=== PATIENT | female | born 1960 | race Caucasian/White ===

== ENCOUNTER 2017-10-13 11:54 | Inpatient (IN) ==
[2017-10-13] MEDS ORDERED: METHYLPREDNISOLONE SOD SUCC 125mg/2ml INJECTION IVP ONE (12:16)
[2017-10-13] MEDS: ALBUTEROL/IPRATROPIUM 2.5mg-0.5mg/3ml NEB AEROSOL ONE (12:20)
--- NOTE | 2017-10-13 12:22 | Emergency Department Report ---
Asthma HPI - General Chief Complaint: Shortness of Breath/Dyspnea <Lindsey Baez 10/13/17 12 :25> Stated Complaint: soa, chest tightness <Lindsey Baez 10/13/17 12:25> Source: patient <Lindsey Baez 10/13/17 12:25> Mode of arrival: EMS <Lindsey Baez 10/13/17 12:25> Limitations: no limitations <Lindsey Baez 10/13/17 12:25> - History of Present Illness HPI Narrative: PT presents with increased difficulty breathing for 5 days. Last similar episode was about a month ago when she was admitted to [facility] for HMV. She reports non productive cough and feels it is worse with exertion. She feels like her lungs hurt but denies chest pain. She also denies fever, diaphoresis, N /V/D. She takes prn Lasix for "leg swelling" but denies any cardiac or respiratory health issues. She is currently receiving treatment for non hodgkins lymphoma. <Lindsey Baez 10/13/17 12:25> MD complaint: shortness of breath <Lindsey Baez 10/13/17 12:25> Onset (ago): day(s) <Lindsey Baez 10/13/17 12:25> Severity: moderate <Lindsey Baez 10/13/17 12:25> Associated symptoms: dry cough <Lindsey Baez 10/13/17 12:25> - Related Data Home Medications Medication Instructions Recorded Confirmed Omeprazole Magnesium [Prilosec Otc] 20 mg PO DAILY PRN #0 tab 02/15/13 10/13/17 Zolpidem Tartrate [Ambien] 10 mg PO HS #0 12/30/15 10/13/17 Venlafaxine [Effexor] 37.5 mg PO BID 04/27/17 10/13/17 Allopurinol [Zyloprim] 300 mg PO DAILY 10/13/17 10/13/17 Cyclobenzaprine [Flexeril] 10 mg PO TID PRN 10/13/17 10/13/17 Furosemide [Lasix 40 mg Tab] 40 mg PO BID 10/13/17 10/13/17 Ondansetron Tab [Zofran Po] 8 mg PO TID PRN 10/13/17 10/13/17 Oxycodone *IR* [Roxicodone *Ir*] 45 mg PO Q4H PRN 10/13/17 10/13/17 PredniSONE [Deltasone 20 mg] 40 mg PO DAILY 10/13/17 10/13/17 Venetoclax [Venclexta] 200 mg PO DAILY 10/13/17 10/13/17 <Lindsey Baez 10/13/17 12:25> Allergies Allergy/AdvReac Type Severity Reaction Status Date / Time benzonatate AdvReac Dizziness Verified 10/13/17 12:46 <Lindsey Baez 10/13/17 12:25> Review of Systems All systems: reviewed and negative except as stated <Lindsey Baez 01/23 12:25> Constitutional: Reports: as per HPI <Lindsey Baez 10/13/17 12:25> Cardiovascular: Reports: as per HPI <Lindsey Baez 10/13/17 12:25> Respiratory: Reports: as per HPI <Lindsey Baez 10/13/17 12:25> Gastrointestinal: Reports: as per HPI <Lindsey Baez 10/13/17 12:25> [facility] Patient Stated Medical History Hypertension Yes Gastroesophageal Reflux Yes Disease Ulcer Yes Sepsis Yes Other Yes: non-hodgkins lymphoma Depression Yes <Lindsey Baez 10/13/17 12:25> - Social History Smoking status: Never smoker <Lindsey Baez 10/13/17 12:25> Physical Exam - Limitations Limitations: no limitations <Lindsey Baez 10/13/17 12:25> - General General appearance: alert, in distress <Lindsey Baez 10/13/17 12:25> - Normal Exams: Head:: Normocephalic without trauma <Lindsey Baez 10/13/17 12:25> Eyes:: Pupils are PERRLA w/ EOMI <Lindsey Baez 10/13/17 12:25> Chest/Respirations:: Clear all villagomez (tachypnic), with good airflow, and symmetry bilaterally <IgnaciaconchaLindsey 10/13/17 12:25> Cardiovascular:: Regular rate and rhythm, without murmur or gallop, Pulses 2+ all extremities, capillary refill, <2 seconds all extremities <Ignaciaconcha Lindsey Mary Snyder 10/13/17 12:25> Abdomen:: Bowel sounds positive, soft, non-tender, non-distended <Sasha Lindseymary Snyder 10/13/17 12:25> Musculoskeletal:: No tenderness, or deformity noted, good range of motion, all extremities <Jose AntoniojosephLindsey Mary Snyder 10/13/17 12:25> Integumentary:: No rashes <SashaLindsey Mary Snyder 10/13/17 12:25> Neurological:: Patient is alert, and oriented, cranial nerves, motor/sensory/ cerebellar, exams w/o gross deficits, to observation <Lindsey Baez 01/23 12:25> Psychiatric:: Patient exhibits, appropriate attention, emotion and affect < Jose AntoniojosephLindsey Mary Snyder 10/13/17 12:25> Course Vital Signs Temperature 97.6 F 10/13/17 12:00 Pulse Rate 87 10/13/17 12:00 Respiratory Rate 26 H 10/13/17 12:00 Blood Pressure 201/116 H 10/13/17 12:00 Pulse Oximetry 91 10/13/17 12:00 Temperature 97.6 F 10/13/17 12:00 Pulse Rate 86 10/13/17 14:00 Respiratory Rate 22 10/13/17 12:20 Blood Pressure 188/99 H 10/13/17 14:00 Pulse Oximetry 91 10/13/17 14:00 <SashaLindsey Mary Snyder 10/13/17 15:33> Dyspnea - MDM Narrative Medical decision making narrative: Labs, EKG, and X ray results reviewed. She is positive for parainfluenza virus 3. Pt notes some improvement in her breathing but continues to complain that it is difficult to take a deep breath. Pt does not use O2 at home and SpO2 are in the low 90s at rest on RA. When ambulating without O2 pt becomes dyspnic and SpO2 drops into the mid 80s. Discussed all findings with pt. Dr Graves notified of history and findings and will admit observation at this time. <Lindsey Baez 10/13/17 15:29> - Differential Diagnosis Differential diagnosis: Likely: Acute exacerbation, PE, Pneumonia, COPD exacerbation <Lindsey Baez - 10/13/17 12:25> - Lab Data Attestation: I reviewed the patient's lab results. <Lindsey Baez 10/13 15:29> Result diagrams: 10/13/17 12:28 10/13/17 12:29 <Lindsey Baez - 10/13/17 12:25> Lab Results 10/13/17 10/13/17 10/13/17 Range/Units 12:28 12:29 13:32 WBC 5.8 (4.5-11.0) T/MM3 RBC 3.99 L (4.00-5.20) M/MM3 Hgb 12.1 (12-16) GM/DL Hct 37.7 (36-46) % MCV 94.5 (80-100) UM3 MCH 30.3 (26-34) UUG MCHC 32.1 (31-37) GM/DL RDW Std Deviation 52.4 H (36.9-50.2) FL Plt Count 44 L (130-400) T/MM3 MPV 12.0 (9.4-12.4) UM3 Immature Gran % (Auto) 0.2 (0.0-0.5) % Neut % (Auto) 50.7 (33-66) % Lymph % (Auto) 41.1 (23-45) % Hinds % (Auto) 7.8 (0-9.0) % Eos % (Auto) 0.0 (0-4) % Baso % (Auto) 0.2 (0-2) % Neut # (Auto) 2.9 (1.8-7.7) T/MM3 Lymph # (Auto) 2.4 (1-4.8) T/MM3 Hinds # (Auto) 0.5 (0-0.8) T/MM3 Eos # (Auto) 0.0 (0-0.5) T/MM3 Baso # (Auto) 0.0 (0-0.2) T/MM3 Abs Immat Gran (auto) 0.01 (0.00-0.03) T/MM3 Turbidity < 20 (0-20) Sodium 139 (134-144) MEQ/L Potassium 3.5 L (3.6-5) MEQ/L Chloride 92 L (98-107) MEQ/L Carbon Dioxide 33 H (22-30) MEQ/L Anion Gap 14 (5-15) meq/L BUN 13.0 (7-17) MG/DL Creatinine 0.8 (0.7-1.2) mg/dL GFR Calculation 74 BUN/Creatinine Ratio 16 (6-26) RATIO Glucose 314 H (65-110) MG/DL Calculated Osmolality 280 (261-280) MOSM/KG Calcium 9.7 (8.4-10.2) MG/DL Total Bilirubin 0.60 (0.20-1.30) MG/DL Icterus Index < 2 (0-7) AST 27 (14-36) U/L ALT 28 (1-35) U/L Alkaline Phosphatase 110 (38-126) U/L Troponin I < 0.012 (0-0.12) ng/ml NT-Pro-B Natriuret Pep 186 H (0-175) pg/mL Total Protein 7.5 (6.3-8.2) g/dL Albumin 4.6 (3.5-5.0) g/dL Globulin 2.9 (2.4-3.6) G/DL Albumin/Globulin Ratio 1.6 (1.1-2.2) RATIO Specimen Hemolysis < 15 (0-25) Adenovirus (PCR) Negative (Negative) B.parapertussis DNA PCR Negative (Negative) C. pneumoniae DNA (PCR) Negative (Negative) Coronavirus OC43 (PCR) Negative (Negative) Coronavirus HKU1 (PCR) Negative (Negative) Coronavirus 229E (PCR) Negative (Negative) Coronavirus NL63 (PCR) Negative (Negative) Human Metapneumovir PCR Negative (Negative) Influenza Type A (PCR) Negative (Negative) Influenza Type B (PCR) Negative (Negative) M. pneumoniae (PCR) Negative (Negative) Parainfluenza 1 (PCR) Negative (Negative) Parainfluenza 2 (PCR) Negative (Negative) Parainfluenza 3 (PCR) Detected A* (Negative) Parainfluenza 4 (PCR) Negative (Negative) RSV (PCR) Negative (Negative) Entero/Rhino (PCR) Negative (Negative) <Lindsey Baez 10/13/17 15:33> - Radiology Data Attestation: I reviewed the patient's radiology results. (no acute processes per Dr Byrd) <Lindsey Baez 10/13/17 15:29> - EKG Data EKG #1 EKG attestation: Yes: I reviewed and interpreted this EKG. <Lindsey Baez 10/13/17 15:29> EKG results narrative: Sinus Rhythm. 84 bpm. NO STEMI. <Rebel Morgan C - 10/13/17 14:56> Disposition Clinical Impression: Parainfluenza, Hypoxia <Lindsey Baez 10/13/17 15:33> Disposition: 02 To [facility] <Lindsey Baez 10/13/17 15:33> Condition: Improved <Lindsey Baez 10/13/17 15:33> Instructions: <Lindsey Baez 10/13/17 12:25> Prescriptions: No Action Zolpidem Tartrate [Ambien] 10 mg PO HS #0 Venlafaxine [Effexor] 37.5 mg PO BID Venetoclax [Venclexta] 200 mg PO DAILY Furosemide [Lasix 40 mg Tab] 40 mg PO BID Cyclobenzaprine [Flexeril] 10 mg PO TID PRN PRN Reason: Prn Orders Ondansetron Tab [Zofran Po] 8 mg PO TID PRN PRN Reason: Nausea &/Or Vomiting PredniSONE [Deltasone 20 mg] 40 mg PO DAILY Allopurinol [Zyloprim] 300 mg PO DAILY Omeprazole Magnesium [Prilosec Otc] 20 mg PO DAILY PRN #0 tab PRN Reason: Prn Orders Oxycodone *IR* [Roxicodone *Ir*] 45 mg PO Q4H PRN PRN Reason: Pain <Lindsey Baez 10/13/17 12:25> Referrals: Darryl Carolina, [Physician] - <Lindsey Baez 10/13/17 12:25> Forms: <Lindsey Baez 10/13/17 12:25> Time of Disposition: 15:32 <Lindsey Baez 10/13/17 15:33> - Seen By: midlevel <Lindsey Baez 10/13/17 15:33>
[2017-10-13] MEDS: SALINE FLUSH 10ml SYRINGE IVF PRN ×2 (12:40→17:14)
--- NOTE | 2017-10-13 13:13 | XRay Report ---
INDICATION: SOA PROCEDURE: CHEST 2-VIEWS UPRIGHT (PA & LAT) Encounter: Initial COMPARISON: CT chest dated September 20, 2015 FINDINGS: The lungs are clear without evidence of focal abnormal airspace opacity. There is no pleural effusion or pneumothorax. Right IJ port catheter with the tip in the mid to lower SVC. The heart size, mediastinal contours and pulmonary vascularity are within normal limits. Interval development of a severe mid thoracic compression fracture. IMPRESSION: No acute cardiopulmonary disease. Severe mid thoracic compression fracture, new since 2015. .
[2017-10-13 16:39] VITALS: BMI 38.9
[2017-10-13] MEDS ORDERED: MORPHINE SULFATE 4mg INJECTION IVP PRN (16:40)
[2017-10-13] MEDS ORDERED: SENNA + DOCUSATE TABLET PO PRN (16:40)
[2017-10-13] MEDS ORDERED: ONDANSETRON 4 MG/2 ML INJECTION IVP PRN (16:40)
[2017-10-13] MEDS ORDERED: GLUCOSE ORAL GEL 40% 37.5gm PO PRN (16:44)
[2017-10-13] MEDS ORDERED: ALBUTEROL/IPRATROPIUM 2.5mg-0.5mg/3ml NEB AEROSOL PRN (16:44)
[2017-10-13] MEDS ORDERED: MENTHOL COUGH DROPS (RICOLA) MM PRN (16:44)
[2017-10-13] MEDS ORDERED: Oxycodone *IR* 15 MG TABLET PO PRN (16:45)
[2017-10-13] MEDS ORDERED: POTASSIUM CHLORIDE INJ 20 MEQ in NS 1,000 ML IV SCH (16:45)
[2017-10-13] MEDS: NS with KCL 20 mEq 1,000 ML IV SCH (17:13)
--- NOTE | 2017-10-13 17:13 | History & Physical Report ---
History of Present Illness Date: 10/13/17 Chief complaint: acute dyspnea, hypoxia, parainfluenza 3 HPI: Lois Martin is a 56-year-old patient with a history of CLL/SLL and follows with Dr. Jimenez, oncology, in [place]. She reports that she saw Dr. Jimenez in clinic a week ago for routine follow up and was doing well. On 10/07/17, she reports she became slightly more short of breath with occasional productive cough with yellowish sputum. She denies any fevers, chills, chest pain, abdominal pain, nausea, vomiting or diarrhea. She reports a similar illness about a month ago at which time she was admitted to [facility] and found to have HMV. She contacted Dr. Jimenez and was started on Levaquin daily for empiric antimicrobial coverage of suspected lung pathogens. Despite taking the Levaquin , she continued to feel more short of breath and denies any clinical improvement. Ultimately, she discontinued the Levaquin on 10/11/17 due to concerns about potential drug interactions between the Levaquin and her prednisone that she read about on the internet. On 10/12/17 she was feeling a little better but this morning she started to have increased dyspnea again. She presented to [facility] today, 10/13/17 for further evaluation. Labs in the ED revealed persistent thrombocytopenia (plt 44) with mild hypokalemia (K 3.5) and hyperglycemia (Glu 314). Records prior her prior hospitalization at [facility] were reviewed and revealed that she had persistent hyperglycemia requiring sliding scale insulin and was found to have an A1c of 7.7%. Upon discharge from [facility], she was encouraged to follow up with her PCP for treatment of her newly diagnosed diabetes which was not done. CXR in the ED revealed no acute cardiopulmonary abnormalities but did note a severe mid-thoracic compression fracture which was new compared to prior imaging studies in 2016. Incidental, she has complained of mid-back pain "for months" and was her presenting symptoms at the time of hospitalization at [facility] in September 2017. She denies any recent trauma, though does admit to a fall in June 2017. While in the ED, she received DuoNeb treatment with Solu-Medrol 125mg IV x 1 dose with minimal improvement. She was able to maintain her oxygen saturations in the low 90's while at rest but reported dropped into the 80's with ambulation. Due to her acute dyspnea with hypoxia secondary to parainfluenza virus as well as her immunocompromised state, Dr. Graves was consulted and she was admitted into observation status for further evaluation and close respiratory monitoring. Lois is initially seen in the ED with her at the bedside. She is breathing easily on room air but is noted to have some mild 4-5 word conversational dyspnea. Current labs and CXR results were discussed with her and her and she became very tearful and began sobbing when told about her compression fracture in her mid back, which she was unaware of. Review of imaging reports from [facility] did not comment on presence of compression fracture. Review of Systems All systems PM: 10-point ROS was reviewed, no additional remarkable complaints except - Constitutional Constitutional: Present: fatigue, weakness. Absent: anorexia, fever(s) - EENMT Eyes: Absent: change in vision, photophobia Ears: Absent: ear pain Balance: Absent: falling to one side Nose: Absent: nosebleeds Mouth/Throat: Present: dry mouth. Absent: sore throat, changes in swallowing - Cardiovascular Cardiovascular: Present: dyspnea on exertion, orthopnea, edema. Absent: chest pain, palpitations, syncope, cyanosis Rhythm: Present: regular rhythm Vascular: Present: pedal edema, varicosities. Absent: pallor of an extermity, unilateral swelling - Respiratory Respiratory: Present: cough, dyspnea, dyspnea on exertion, pain on inspiration. Absent: hemoptysis, wheezing - Gastrointestinal Gastrointestinal: Present: constipation. Absent: abdominal pain, diarrhea, melena, nausea, vomiting - Genitourinary Genitourinary: Absent: dysuria, flank pain, hematuria - Musculoskeletal Musculoskeletal: Present: back pain (mid back), muscle weakness. Absent: deformity - Integumentary/Breasts Integumentary: Absent: rash - Neurological Neurological: Present: weakness. Absent: dizziness, focal weakness, frequent falls, vertigo - Psychiatric Psychiatric: Present: abnormal sleep pattern, anxiety, depression - Endocrine Endocrine: Absent: palpitations - Hematologic/Lymphatic Hematologic/Lymphatic: Present: easy bruising - Allergic/Immunologic Allergic/Immunologic: Absent: seasonal rhinorrhea Past Medical History Medical History Updates: CML/SLL. GERD. Thrombocytopenia. Anxiety and depression. A-fib. Immunocompromised due to current chemotherapy. Surgical History: Bone marrow biopsy - 10/18/14. Bunionectomy. Knee surgery x 2. Hernia repair. Bilateral tubal ligation. Family History: Father - CLL, hypertension. Mother - CAD. 2 living children. Family History: As Above - Social History Smoking status: Former smoker (quit 2013) Substance use type: does not use Alcohol intake frequency: a few times a month Housing: house Household members: spouse Current occupational status: employed (legal administrator) Does patient use chewing tobacco?: No Current residence: Apartment/Private Home Social history: Onc - Dr. Jimenez. Medications Home Medications Medication Instructions Recorded Confirmed Type Omeprazole Magnesium [Prilosec Otc] 20 mg PO DAILY PRN #0 tab 02/15/13 10/13/17 History Zolpidem Tartrate [Ambien] 10 mg PO HS #0 12/30/15 10/13/17 History Venlafaxine [Effexor] 37.5 mg PO BID 04/27/17 10/13/17 History Allopurinol [Zyloprim] 300 mg PO DAILY 10/13/17 10/13/17 History Cyclobenzaprine [Flexeril] 10 mg PO TID PRN 10/13/17 10/13/17 History Furosemide [Lasix 40 mg Tab] 40 mg PO BID 10/13/17 10/13/17 History Ondansetron Tab [Zofran Po] 8 mg PO TID PRN 10/13/17 10/13/17 History Oxycodone *IR* [Roxicodone *Ir*] 60 mg PO Q4H PRN 10/13/17 10/13/17 History PredniSONE [Deltasone 20 mg] 40 mg PO DAILY 10/13/17 10/13/17 History Venetoclax [Venclexta] 200 mg PO DAILY 10/13/17 10/13/17 History Allergies Allergy/AdvReac Type Severity Reaction Status Date / Time benzonatate AdvReac Dizziness Verified 10/13/17 12:46 Exam Vital Signs: Temperature 98.7 F 10/13/17 16:35 Pulse Rate 84 10/13/17 16:35 Respiratory Rate 20 10/13/17 16:35 Blood Pressure 154/109 H 10/13/17 16:35 Pulse Oximetry 94 10/13/17 16:35 Height/Weight/BMI: Height 5 ft 6 in Weight 241 lb 2.971 oz Body Mass Index 38.9 Comments: Patient initially seen while sitting on side of bed in ED with at bedside. Breathing easily on room air, though does become dyspneic with conversational dyspnea when talking. - Constitutional Present: well nourished, well developed, morbidly obese, cooperative Comments: Very tearful and begins sobbing on exam. - Routine HEENT Exam Head: Present: normocephalic, atraumatic Eye: Present: PERRL. Absent: conjunctival icterus ENT: Present: mucous membranes moist, oropharynx clear - Routine Neck Exam Present: supple, full ROM, trachea midline - Routine Chest/Breast/Axilla Exam Chest wall: Absent: pacemaker - Routine Respiratory Exam Present: decreased breath sounds. Absent: wheezes Comments: Diminished breath sounds bilaterally though no wheezing or rhonchi; occasional dry cough with deep breathing; mild conversational dyspnea 5-6 words when talking; pain to mid back with deep breathing. - Routine Cardiovascular Exam Present: RRR, S1, S2 - Routine Abdominal Exam Present: soft, normoactive bowel sounds, non tender Comments: obese. - Routine Extremities Exam Present: edema (trace), full ROM, pulses intact - Routine Back/Spine/Pelvis Exam Back/Spine: Present: vertebral tenderness (mid T-spine), kyphosis Comments: Limited exam due to patient refusing in fear of anticipated pain. - Routine Skin Exam Present: intact, dry, warm Comments: Afebrile. - Routine Neurological Exam Present: alert, oriented X3, moving all extremities, hearing grossly intact, normal speech - Routine Psychiatric Exam Present: cooperative, depressed, anxious Comments: Tearful and sobs on exam. Emotionally liable. Results - Labs CBC & Chem 7: 10/13/17 12:28 10/13/17 12:29 - Imaging and Cardiology Chest x-ray Status: image reviewed by me Additional comments: Date of Exam: 10/13/17 Type of Exam(s): XR chest 2V Reason for Exam(s): SOA INDICATION: SOA PROCEDURE: CHEST 2-VIEWS UPRIGHT (PA & LAT) Encounter: Initial COMPARISON: CT chest dated September 20, 2015 FINDINGS: The lungs are clear without evidence of focal abnormal airspace opacity. There is no pleural effusion or pneumothorax. Right IJ port catheter with the tip in the mid to lower SVC. The heart size, mediastinal contours and pulmonary vascularity are within normal limits. Interval development of a severe mid thoracic compression fracture. IMPRESSION: No acute cardiopulmonary disease. Severe mid thoracic compression fracture, new since 2016. Assessment and Plan (1) Hypoxia Current visit: Yes Status: Acute Assessment and Plan: Assessment: Acute respiratory failure with hypoxia and hypercapnia - POA. Parainfluenza 3 virus - POA. Hypokalemia (K 3.5) - POA. Diabetes mellitus, type II (314) - POA. Thrombocytopenia secondary to current chemotherapy (Plt 44). Immunocompromised due to current chemotherapy. NHL/CLL/SLL. Anxiety and depression. GERD. A-fib. Plan - 10/13/17: Admit to observation status under the care of Dr. Graves. Oxygen as needed to maintain SAO2 >90%, weaning as able. Patient denies use of home oxygen. Mucinex and ricola for mucolytic effect. Tussinex for cough suppression. DuoNeb QID and PRN for dyspnea. Will continue home prednisone 40mg daily. Initiate NS with KCl at 75cc/hr for gentle hydration and potassium supplementation. Recheck labs in AM. CXR revealed no acute cardiopulmonary abnormalities but did note severe mid thoracic compression fracture which correlates to location of pain in back. Morphine PRN pain. Continue home oxycodone. Bowel motivation. Hyperglycemia on admission. [facility] records indicated A1c 7.7% with no known diagnosis of diabetes. Patient was instructed to follow up with PCP regarding treatment following discharge but didn't. Monitor blood sugars closely. Sliding scale insulin as needed. Carb controlled diet. Patient seen by primary special educator in [place] in September. Continue venclexta and prednisone for CLL/SLL. Monitor closely for signs of worsening depression given emotional liability. Upon discharge, patient's care will be returned to her PCP. Patient requests to be a FULL CODE. DVT Prophylaxis: SCD's GI Prophylaxis: Omeprazole Resuscitation Status: Full Code - Time spent with patient Time with patient PN: 70 minutes - Physician Narrative Physician: Trisha Graves MD Narrative: Date: 10/13/17 Time: 1834 I have independently evaluated and examined this patient. I reviewed the chart, the patient's history, and the TESTER OPERATOR/PA's documented findings as above. We discussed and formulated the assessment and plan as above with additions as below: Lois presented to the emergency room due to increasing dyspnea and exertional dyspnea after 1 week history of cough with very sputum production. She was recently hospitalized at [facility] with human med and Pneumovirus URI and transient hypoxia. On evaluation in the emergency room chest x-ray was unremarkable but the patient was significantly symptomatic and oxygen saturations were marginal at rest with rapid desaturation to 86% with minimal activity. Records indicate history of non-Hodgkin's lymphoma in addition to CLL/ SLL with thrombocytopenia. Tearful female, anxious, afebrile Oxygen saturation on room air 94% at rest, unchanged with application of 2 L supplemental oxygen; patient is obviously dyspneic speaking Tachypnea, panting respirations (right pleuritic pain described due to excessive cough over the past week), no crackles or wheezing appreciated Regular rhythm with low-grade tachycardia; +1 edema bilateral lower extremities Chest x-ray by my review reveals no acute pulmonary disease, Port-A-Cath in the right chest, significant compression fracture in the mid thoracic region EKG has been reviewed by myself demonstrating sinus rhythm with normal waveforms and diffusely flattened T waves. Symptomatic management, continue home prednisone dose at this time but may require Solu-Medrol if evidence of bronchospasm but cannot be controlled with budesonide and DuoNeb treatments. May be some component of anxiety/panic attack in presentation in addition to inadequately controlled pain due to compression fracture which patient reports has likely been present for 2 months. Check BNP/d-dimer in a.m. We will discuss with Dr. Jimenez in the morning; suspect patient will need referral to PCP for management of diabetes. Discussed with ER provider; [facility] records reviewed. Hospital Course Summary Disclaimer: The visit summary below is not to be considered part of the above Progress Note. Hospital Course: Plan - 10/13/17: Admit to observation status under the care of Dr. Graves. Oxygen as needed to maintain SAO2 >90%, weaning as able. Patient denies use of home oxygen. Mucinex and ricola for mucolytic effect. Tussinex for cough suppression. DuoNeb QID and PRN for dyspnea. Will continue home prednisone 40mg daily. Initiate NS with KCl at 75cc/hr for gentle hydration and potassium supplementation. Recheck labs in AM. CXR revealed no acute cardiopulmonary abnormalities but did note severe mid thoracic compression fracture which correlates to location of pain in back. Morphine PRN pain. Continue home oxycodone. Bowel motivation. Hyperglycemia on admission. S records indicated A1c 7.7% with no known diagnosis of diabetes. Patient was instructed to follow up with PCP regarding treatment following discharge but didn't. Monitor blood sugars closely. Sliding scale insulin as needed. Carb controlled diet. Patient seen by primary special educator in [place] in September. Continue venclexta and prednisone for CLL/SLL. Monitor closely for signs of worsening depression given emotional liability. Upon discharge, patient's care will be returned to her PCP. Patient requests to be a FULL CODE.
[2017-10-13] MEDS: FUROSEMIDE 40 MG TABLET PO SCH (17:14)
[2017-10-13] MEDS: VENLAFAXINE 37.5 MG TABLET PO SCH (18:01)
[2017-10-13] MEDS: Oxycodone *IR* 15 MG TABLET PO PRN (18:17)
[2017-10-13] MEDS: BUDESONIDE INH.SOLN 0.5mg/2ml NEB AEROSOL SCH (19:59)
[2017-10-13] MEDS: ALBUTEROL/IPRATROPIUM 2.5mg-0.5mg/3ml NEB AEROSOL SCH (19:59)
[2017-10-13] MEDS: ZOLPIDEM 10 MG TABLET PO SCH (21:20)
[2017-10-13] MEDS: HYDROCODONE/CHLORPHENIRAMINE ER ORAL LIQ 5ml PO SCH (21:20)
[2017-10-13] MEDS: GUAIFENESIN LA 600 MG TABLET PO SCH (21:20)
[2017-10-13] MEDS: INSULIN ASPART 100unit/ml INJECTION SQ PRN (21:21)
[2017-10-13] MEDS: CYCLOBENZAPRINE 10 MG TABLET PO PRN (21:41)
[2017-10-14] MEDS: NS with KCL 20 mEq 1,000 ML IV SCH ×2 (05:18→08:43)
[2017-10-14] MEDS ORDERED: OMEPRAZOLE 20 MG CAPSULE PO PRN (06:30)
[2017-10-14] MEDS: BUDESONIDE INH.SOLN 0.5mg/2ml NEB AEROSOL SCH ×2 (07:53→19:19)
[2017-10-14] MEDS: ALBUTEROL/IPRATROPIUM 2.5mg-0.5mg/3ml NEB AEROSOL SCH ×4 (07:53→19:19)
[2017-10-14] MEDS ORDERED: VENETOCLAX 200 MG PO SCH (09:00)
[2017-10-14] MEDS: FUROSEMIDE 40 MG TABLET PO SCH ×2 (09:35→17:56)
[2017-10-14] MEDS: HYDROCODONE/CHLORPHENIRAMINE ER ORAL LIQ 5ml PO SCH ×2 (09:35→21:23)
[2017-10-14] MEDS: VENLAFAXINE 37.5 MG TABLET PO SCH ×2 (09:36→17:56)
[2017-10-14] MEDS: GUAIFENESIN LA 600 MG TABLET PO SCH ×2 (09:36→21:24)
[2017-10-14] MEDS: ALLOPURINOL 300 MG TABLET PO SCH (09:36)
[2017-10-14] MEDS: POLYETHYL GLYCOL 3350 17gm PACKET PO SCH (09:37)
[2017-10-14] MEDS: Oxycodone *IR* 15 MG TABLET PO PRN ×4 (09:40→23:29)
[2017-10-14] MEDS: PredniSONE 20 MG TABLET PO SCH (09:40)
[2017-10-14] MEDS: INSULIN ASPART 100unit/ml INJECTION SQ PRN ×3 (12:22→23:34)
--- NOTE | 2017-10-14 15:38 | Progress Note ---
- Date 10/14/17 Subjective: Lois states that she is feeling better today. She is able to complete full sentences without feeling short of breath most of the time. She is able to get up and walk to the bathroom at "a turtle's pace instead of a snail's" but she is still short of air with exertion. She denies fevers, chills or sweats. She states that her appetite came back a little today and she just ordered a sandwich. She denies any nausea or vomiting. She denies feeling dizzy or lightheaded. She denies any oral sores or lesions. Speculum complains of a dry mouth. Objective Vital signs: Temperature 97.4 F 10/14/17 11:45 Pulse Rate 87 10/14/17 15:22 Respiratory Rate 20 10/14/17 15:22 Blood Pressure 142/87 H 10/14/17 15:22 Pulse Oximetry 92 10/14/17 15:22 - Constitutional Present: no acute distress, well nourished, well developed, obese - Routine HEENT Exam Head: Present: normocephalic Eye: Present: PERRL. Absent: conjunctival icterus, scleral injection ENT: Present: mucous membranes dry, oropharynx clear - Routine Respiratory Exam Present: decreased breath sounds - Routine Cardiovascular Exam Present: RRR, S1, S2 - Routine Abdominal Exam Present: soft, normoactive bowel sounds, non distended, non tender - Routine Extremities Exam Present: edema (trace) - Routine Skin Exam Present: intact, dry, warm, rash (purpuric lesions noted on arms, patient calls this "venclexta rash") - Routine Neurological Exam Present: alert, oriented X3, CN II-XII intact, moving all extremities - Routine Psychiatric Exam Present: normal affect, normal thought process, cooperative Results - Labs CBC & Chem 7: 10/14/17 04:28 10/14/17 04:28 Assessment and Plan (1) Hypoxia Current visit: Yes Status: Acute Assessment and Plan: Assessment: Acute respiratory failure with hypoxia and hypercapnia - POA. Parainfluenza 3 virus - POA. Hypokalemia (K 3.5) - POA. Diabetes mellitus, type II (314) - POA. Thrombocytopenia secondary to current chemotherapy (Plt 44). Immunocompromised due to current chemotherapy. NHL/CLL/SLL. Anxiety and depression. GERD. A-fib. Plan - 10/14/17: Respiratory status improving, no longer with conversational dyspnea and activity levels are increasing. Will obtain overnight oximetry. May need ambulatory oximetry prior to discharge. Continue supportive care. DC IVF. Replace potassium (3.4). Pt understands diabetes diagnosis is at least partly due to chemo (which could be true b/c of stress it's inflicted) and prednisone use. Diabetic education ordered. Will start Metformin 500 mg daily. Platelets low but slightly improved to 48. Hgb 11.4. Discussed with Dr. Graves. DVT Prophylaxis: SCD's GI Prophylaxis: other (Prilosec) Resuscitation Status: Full Code - Physician Narrative Physician: Trisha Graves MD Narrative: Date: 10/14/17 Time: 1624 I have independently evaluated and examined this patient. I reviewed the chart, the patient's history, and the SURVEYOR GEOPH[employer]ICAL PROSPECTING/PA's documented findings as above. We discussed and formulated the assessment and plan as above with additions as below: Lois reports feeling better overall although back is still painful with any activity or movement. She is breathing more comfortably than cough is nonproductive. Patient is in good spirits today and much less emotional. Not tearful when visited twice today. Respirations nonlabored, decreased breath sounds throughout but clear, no wheezing Extensive bruising on the arms Discussed with Dr. Jimenez; subsequently discussed consideration of psychiatric consultation to help stress management with Lois but she indicated she is always been an emotional person and things are no different now than they've always been. She acknowledged that she is emotional but she doesn't think it would change and that she really doesn't want to change. PT/OT consults. Patient reports she is reluctant to taper steroids because she feels better at 40 mg of prednisone and she doesn't lower doses; she felt even better when she was on higher doses. Discussed rationale for lowering steroids in light of diagnosis of compression fracture and diabetes. Using oxycodone for pain control, 3 doses in the past 24 hours. Hospital Course Summary Disclaimer: The visit summary below is not to be considered part of the above Progress Note. Hospital Course: Plan - 10/13/17: Admit to observation status under the care of Dr. Graves. Oxygen as needed to maintain SAO2 >90%, weaning as able. Patient denies use of home oxygen. Mucinex and ricola for mucolytic effect. Tussinex for cough suppression. DuoNeb QID and PRN for dyspnea. Will continue home prednisone 40mg daily. Initiate NS with KCl at 75cc/hr for gentle hydration and potassium supplementation. Recheck labs in AM. CXR revealed no acute cardiopulmonary abnormalities but did note severe mid thoracic compression fracture which correlates to location of pain in back. Morphine PRN pain. Continue home oxycodone. Bowel motivation. Hyperglycemia on admission. [facility] records indicated A1c 7.7% with no known diagnosis of diabetes. Patient was instructed to follow up with PCP regarding treatment following discharge but didn't. Monitor blood sugars closely. Sliding scale insulin as needed. Carb controlled diet. Patient seen by in service educator in [place] in September. Continue venclexta and prednisone for CLL/SLL. Monitor closely for signs of worsening depression given emotional liability. Upon discharge, patient's care will be returned to her PCP. Patient requests to be a FULL CODE. 10/14/17: Respiratory status improving, no longer with conversational dyspnea and activity levels are increasing. Will obtain overnight oximetry. May need ambulatory oximetry prior to discharge. Continue supportive care. DC IVF. Replace potassium (3.4). Pt understands diabetes diagnosis is at least partly due to chemo (which could be true b/c of stress it's inflicted) and prednisone use. Diabetic education ordered. Will start Metformin 500 mg daily. Platelets low but slightly improved to 48. Hgb 11.4. Discussed with Dr. Graves.
[2017-10-14] MEDS: CYCLOBENZAPRINE 10 MG TABLET PO PRN (19:34)
[2017-10-14] MEDS: ZOLPIDEM 10 MG TABLET PO SCH (21:24)
[2017-10-15] MEDS: VENETOCLAX 200 MG PO SCH (06:03)
[2017-10-15] MEDS: BUDESONIDE INH.SOLN 0.5mg/2ml NEB AEROSOL SCH ×2 (08:21→22:31)
[2017-10-15] MEDS: ALBUTEROL/IPRATROPIUM 2.5mg-0.5mg/3ml NEB AEROSOL SCH ×4 (08:21→22:32)
[2017-10-15] MEDS: Oxycodone *IR* 15 MG TABLET PO PRN ×3 (08:30→18:25)
[2017-10-15] MEDS: HYDROCODONE/CHLORPHENIRAMINE ER ORAL LIQ 5ml PO SCH ×2 (09:30→20:51)
[2017-10-15] MEDS: ALLOPURINOL 300 MG TABLET PO SCH (09:31)
[2017-10-15] MEDS: GUAIFENESIN LA 600 MG TABLET PO SCH ×2 (09:31→20:50)
[2017-10-15] MEDS: VENLAFAXINE 37.5 MG TABLET PO SCH ×2 (09:31→17:09)
[2017-10-15] MEDS: METFORMIN 500 MG TABLET PO SCH (09:31)
[2017-10-15] MEDS: PredniSONE 20 MG TABLET PO SCH (09:31)
[2017-10-15] MEDS: FUROSEMIDE 40 MG TABLET PO SCH (09:32)
[2017-10-15] MEDS: POLYETHYL GLYCOL 3350 17gm PACKET PO SCH (09:33)
--- NOTE | 2017-10-15 11:43 | Progress Note ---
- Date 10/15/17 Subjective: Lois is seen today in follow up. She is still a bit SOA and tearful at times. Reports nonproductive cough. Denies any other acute concerns. Does not report any pain during our visit today. Chart is reviewed for collateral information. Objective Vital signs: Temperature 96.9 F 10/15/17 08:00 Pulse Rate 81 10/15/17 11:27 Respiratory Rate 16 10/15/17 11:27 Blood Pressure 141/96 H 10/15/17 11:27 Pulse Oximetry 92 10/15/17 11:27 Height/Weight/BMI: Weight 110.1 kg - Constitutional Present: mild distress, obese, cooperative - Routine HEENT Exam Head: Present: normocephalic, atraumatic Eye: Present: EOMI, PERRL ENT: Present: mucous membranes dry - Routine Respiratory Exam Present: dyspnea (Mild-moderate dyspnea at rest. ), decreased breath sounds, diminished air movement. Absent: rales, rhonchi, wheezes, crackles - Routine Cardiovascular Exam Present: RRR, S1, S2, no murmur - Routine Abdominal Exam Present: soft, normoactive bowel sounds, non distended, non tender - Routine Extremities Exam Present: no edema, non tender - Routine Musculoskeletal Exam Musculoskeletal: Present: normal strength, moving extremities well - Routine Skin Exam Present: intact, dry, warm (She has a very bettie complexion. Skin is warm) - Routine Neurological Exam Present: alert, moving all extremities - Routine Psychiatric Exam Present: normal thought process, cooperative, depressed, anxious Results - Labs CBC & Chem 7: 10/15/17 05:15 10/15/17 05:15 Assessment and Plan (1) Hypoxia Current visit: Yes Status: Acute Assessment and Plan: Assessment: Acute respiratory failure with hypoxia and hypercapnia - POA. Parainfluenza 3 virus - POA. (recent HMPV) Hypokalemia (K 3.5) - POA. Diabetes mellitus, type II (314) - POA. Thrombocytopenia secondary to current chemotherapy (Plt 44). Immunocompromised due to current chemotherapy. NHL/CLL/SLL. Anxiety and depression. GERD. A-fib. Acute compression fracture. HTN Plan - 10/15/17: Patient continues to be fairly dyspneic today and requires oxygen. She remains on oral steroids/nebs/O2. Continue supportive care and repeat CXR in AM. Continue to monitor lab closely as well. She appears a bit dry today- will back Lasix down to daily. Continue potassium replacement and give an extra does now due to K 3.3. Platelets remain moderately low, but no s/sx of bleeding. Continue supportive care and medications. BP is remaining high- start low dose Norvasc and monitor. Continue Lasix. Pain control for acute compression fx. Blood glucose is mildly variable, but control improving. Repeat labs in AM for monitoring. DVT Prophylaxis: SCD's GI Prophylaxis: Omeprazole Resuscitation Status: Full Code - Physician Narrative Physician: Trisha Graves MD Narrative: Date: 10/15/17 Time: 1914 I have independently evaluated and examined this patient. I reviewed the chart, the patient's history, and the LOADING UNIT OPERATOR [employer]ING/PA's documented findings as above. We discussed and formulated the assessment and plan as above with additions as below: Lois reports that her breathing is better overall but she continues to have exertional dyspnea with very short activities-bed to bathroom; she is no longer coughing and denies sputum production. Back pain is variable. We briefly discussed vertebral plasty and she is unsure if she would want to consider intervention. Patient was called at the time of my evaluation Respirations were nonlabored at rest. Air flow is diminished in breath sounds were clear. Overnight oximetry reviewed-frequent brief desaturations with a total of 41.7 minutes with saturation less than 89% on room air; lowest saturation during the night was 82% and the longest time oxygen saturation was below 89% was 5 minutes. Ambulatory oximetry to be obtained to better assess oxygen demand. Patient uncertain if breathing treatments are helping but symptomatically she is improved from admission. On 1-2 L oxygen most of the day today. Weight stable. Hospital Course Summary Disclaimer: The visit summary below is not to be considered part of the above Progress Note. Hospital Course: Plan - 10/13/17: Admit to observation status under the care of Dr. Graves. Oxygen as needed to maintain SAO2 >90%, weaning as able. Patient denies use of home oxygen. Mucinex and ricola for mucolytic effect. Tussinex for cough suppression. DuoNeb QID and PRN for dyspnea. Will continue home prednisone 40mg daily. Initiate NS with KCl at 75cc/hr for gentle hydration and potassium supplementation. Recheck labs in AM. CXR revealed no acute cardiopulmonary abnormalities but did note severe mid thoracic compression fracture which correlates to location of pain in back. Morphine PRN pain. Continue home oxycodone. Bowel motivation. Hyperglycemia on admission. [facility] records indicated A1c 7.7% with no known diagnosis of diabetes. Patient was instructed to follow up with PCP regarding treatment following discharge but didn't. Monitor blood sugars closely. Sliding scale insulin as needed. Carb controlled diet. Patient seen by adaptive physical educator in [place] in September. Continue venclexta and prednisone for CLL/SLL. Monitor closely for signs of worsening depression given emotional liability. Upon discharge, patient's care will be returned to her PCP. Patient requests to be a FULL CODE. 10/14/17: Respiratory status improving, no longer with conversational dyspnea and activity levels are increasing. Will obtain overnight oximetry. May need ambulatory oximetry prior to discharge. Continue supportive care. DC IVF. Replace potassium (3.4). Pt understands diabetes diagnosis is at least partly due to chemo (which could be true b/c of stress it's inflicted) and prednisone use. Diabetic education ordered. Will start Metformin 500 mg daily. Platelets low but slightly improved to 48. Hgb 11.4. Discussed with Dr. Graves. Plan - 10/15/17: Patient continues to be fairly dyspneic today and requires oxygen. She remains on oral steroids/nebs/O2. Continue supportive care and repeat CXR in AM. Continue to monitor lab closely as well. She appears a bit dry today- will back Lasix down to daily. Continue potassium replacement and give an extra does now due to K 3.3. Platelets remain moderately low, but no s/sx of bleeding. Continue supportive care and medications. BP is remaining high- start low dose Norvasc and monitor. Continue Lasix. Pain control for acute compression fx. Blood glucose is mildly variable, but control improving. Repeat labs in AM for monitoring.
[2017-10-15] MEDS: AMLODIPINE 2.5 MG TABLET PO SCH (12:53)
[2017-10-15] MEDS: INSULIN ASPART 100unit/ml INJECTION SQ PRN (17:09)
[2017-10-15] MEDS: ZOLPIDEM 10 MG TABLET PO SCH (20:51)
[2017-10-16] MEDS: VENETOCLAX 200 MG PO SCH (05:40)
[2017-10-16] MEDS: Oxycodone *IR* 15 MG TABLET PO PRN (05:45)
--- NOTE | 2017-10-16 08:31 | XRay Report ---
INDICATION: hypoxia, PASCUAL PROCEDURE: CHEST 2-VIEWS UPRIGHT (PA & LAT) Encounter: Initial Comparison: October 13, 2017 Findings: The lungs are stable in appearance without new focal airspace consolidation. There is no pleural effusion or pneumothorax. The heart size, pulmonary vascularity and mediastinal contours are unchanged. Right IJ port. IMPRESSION: Stable appearance of the chest without acute cardiopulmonary disease. .
[2017-10-16] MEDS: BUDESONIDE INH.SOLN 0.5mg/2ml NEB AEROSOL SCH (08:42)
[2017-10-16] MEDS: ALBUTEROL/IPRATROPIUM 2.5mg-0.5mg/3ml NEB AEROSOL SCH ×2 (08:42→13:41)
[2017-10-16] MEDS ORDERED: FUROSEMIDE 40 MG TABLET PO SCH (09:00)
[2017-10-16] MEDS: METFORMIN 500 MG TABLET PO SCH (09:55)
[2017-10-16] MEDS: PredniSONE 20 MG TABLET PO SCH (09:56)
[2017-10-16] MEDS: VENLAFAXINE 37.5 MG TABLET PO SCH (09:57)
[2017-10-16] MEDS: AMLODIPINE 2.5 MG TABLET PO SCH (09:57)
[2017-10-16] MEDS: ALLOPURINOL 300 MG TABLET PO SCH (09:57)
[2017-10-16] MEDS: HYDROCODONE/CHLORPHENIRAMINE ER ORAL LIQ 5ml PO SCH (09:58)
[2017-10-16] MEDS: GUAIFENESIN LA 600 MG TABLET PO SCH (09:58)
[2017-10-16] MEDS: POLYETHYL GLYCOL 3350 17gm PACKET PO SCH (09:58)
[2017-10-16 10:22] VITALS: TEMP 98.5
[2017-10-16] MEDS ORDERED: INHALER ASSIST DEVICE (Optichamber) MC ONE (13:18)
[2017-10-16 13:51] VITALS: BP 145/84; PULSE 78; RESP 18; O2SAT 90
[2017-10-16] MEDS: CYCLOBENZAPRINE 10 MG TABLET PO PRN (15:43)
[2017-10-16] MEDS: INSULIN ASPART 100unit/ml INJECTION SQ PRN (15:44)
--- NOTE | 2017-10-16 20:13 | Discharge Summary ---
Discharge Information Date of admission: 10/14/17 13:30 Anticipated date of discharge: 10/16/17 Attending Physician: Trisha Graves MD Primary care physician: Titi Jimenez MD Consults: Diabetes education and dietary consults - Discharge Diagnosis (1) Acute respiratory failure with hypoxia Status: Acute (2) Parainfluenza virus bronchitis Status: Acute Acute respiratory failure with hypoxia and hypercapnia Parainfluenza 3 virus bronchitis Hypokalemia Diabetes mellitus, type II Thoracic compression fracture, age unknown Thrombocytopenia secondary to current chemotherapy Immunocompromised due to current chemotherapy. NHL/CLL/SLL. Anxiety and depression. GERD. A-fib. Hypertension - Procedures Procedures: Overnight oximetry 10/15/17 - 10/16/17 on room air revealed frequent brief desaturations with a total of 41.7 minutes with saturation less than 89% on room air; lowest saturation during the night was 82% and the longest time oxygen saturation was below 89% was 5 minutes. Ambulatory oximetry on 10/16/17 on room air demonstrated initial oxygen saturation 91% with saturation ranging between 89% and 93% while patient ambulated 300 feet. - Laboratory Labs: On admission (10/13/17) WBC 5.8, hemoglobin 12.1, platelet count 44K. Potassium 3.5, HCO3 33, glucose 314, proBNP 186, troponin undetectable. D-dimer 261. Respiratory viral panel positive for parainfluenza virus 3. 10/16/17 04:16 10/16/17 04:16 - Radiology Radiology: Chest x-ray on admission revealed clear lung villagomez without focal abnormality. Severe compression fracture of the mid thoracic vertebrae was reported-age unknown. Repeat chest x-ray on 10/16 was unchanged. History of Present Illness HPI: Lois Martin is a 56-year-old patient with a history of CLL/SLL and follows with Dr. Jimenez, oncology, in [place]. She reports that she saw Dr. Jimenez in clinic a week ago for routine follow up and was doing well. On 10/07/17, she reports she became slightly more short of breath with occasional productive cough with yellowish sputum. She denies any fevers, chills, chest pain, abdominal pain, nausea, vomiting or diarrhea. She reports a similar illness about a month ago at which time she was admitted to [facility] and found to have HMV. She contacted Dr. Jimenez and was started on Levaquin daily for empiric antimicrobial coverage of suspected lung pathogens. Despite taking the Levaquin , she continued to feel more short of breath and denies any clinical improvement. Ultimately, she discontinued the Levaquin on 10/11/17 due to concerns about potential drug interactions between the Levaquin and her prednisone that she read about on the internet. On 10/12/17 she was feeling a little better but this morning she started to have increased dyspnea again. She presented to [facility] ED today, 10/13/17 for further evaluation. Labs in the ED revealed persistent thrombocytopenia (plt 44) with mild hypokalemia (K 3.5) and hyperglycemia (Glu 314). Records prior her prior hospitalization at [facility] were reviewed and revealed that she had persistent hyperglycemia requiring sliding scale insulin and was found to have an A1c of 7.7%. Upon discharge from [facility], she was encouraged to follow up with her PCP for treatment of her newly diagnosed diabetes which was not done. CXR in the ED revealed no acute cardiopulmonary abnormalities but did note a severe mid-thoracic compression fracture which was new compared to prior imaging studies in 2016. Incidental, she has complained of mid-back pain "for months" and was her presenting symptoms at the time of hospitalization at [facility] in September 2017. She denies any recent trauma, though does admit to a fall in June 2017. While in the ED, she received DuoNeb treatment with Solu-Medrol 125mg IV x 1 dose with minimal improvement. She was able to maintain her oxygen saturations in the low 90's while at rest but reported dropped into the 80's with ambulation. Due to her acute dyspnea with hypoxia secondary to parainfluenza virus as well as her immunocompromised state, Dr. Graves was consulted and she was admitted into observation status for further evaluation and close respiratory monitoring. Lois is initially seen in the ED with her at the bedside. She is breathing easily on room air but is noted to have some mild 4-5 word conversational dyspnea. Current labs and CXR results were discussed with her and her and she became very tearful and began sobbing when told about her compression fracture in her mid back, which she was unaware of. Review of imaging reports from [facility] did not comment on presence of compression fracture. Objective Vital signs: Temperature 98.5 F 05/11/18 12:00 Pulse Rate 78 10/16/17 12:00 Respiratory Rate 18 10/16/17 15:04 Blood Pressure 145/84 H 10/16/17 12:00 Pulse Oximetry 90 - RA 10/16/17 12:00 NAD, alert, appears significantly improved from prior days Respirations nonlabored, good airflow, breath sounds clear Regular rhythm, S1-S2 Abdomen soft, obese, nontender, bowel sounds present +1 edema 4 extremities Height/Weight/BMI: Weight 107.9 kg Hospital Course This is a general summary of the patient's hospital course. For more details refer to the complete medical record. Hospital course: Plan - 10/13/17: Admit for hypoxic respiratory failure due to viral bronchitis. Oxygen as needed to maintain SAO2 >90%, weaning as able. Patient denies use of home oxygen. Mucinex and ricola for mucolytic effect. Tussinex for cough suppression. DuoNeb QID and PRN for dyspnea. Will continue home prednisone 40mg daily. Initiate NS with KCl at 75cc/hr for gentle hydration and potassium supplementation. Recheck labs in AM. CXR revealed no acute cardiopulmonary abnormalities but did note severe mid thoracic compression fracture which correlates to location of pain in back. Morphine PRN pain. Continue home oxycodone. Bowel motivation. Hyperglycemia on admission. [facility] records indicated A1c 7.7% with no known diagnosis of diabetes. Patient was instructed to follow up with PCP regarding treatment following discharge but didn't. Monitor blood sugars closely. Sliding scale insulin as needed. Carb controlled diet. Patient seen by asthma educator in [place] in September. Continue venclexta and prednisone for CLL/SLL. Monitor closely for signs of worsening depression given emotional liability. Upon discharge, patient's care will be returned to her PCP. Patient requests to be a FULL CODE. 10/14/17: Respiratory status improving, no longer with conversational dyspnea and activity levels are increasing. Will obtain overnight oximetry. May need ambulatory oximetry prior to discharge. Continue supportive care. DC IVF. Replace potassium (3.4). Pt understands diabetes diagnosis is at least partly due to chemo (which could be true b/c of stress it's inflicted) and prednisone use. Diabetic education ordered. Will start Metformin 500 mg daily. Platelets low but slightly improved to 48. Hgb 11.4. 10/15/17: Patient continues to be fairly dyspneic today and requires oxygen. She remains on oral steroids/nebs/O2. Continue supportive care and repeat CXR in AM. Continue to monitor lab closely as well. She appears a bit dry today- will back Lasix down to daily. Continue potassium replacement and give an extra does now due to K 3.3. Platelets remain moderately low, but no s/sx of bleeding. Continue supportive care and medications. BP is remaining high- start low dose Norvasc and monitor. Continue Lasix. Pain control for acute compression fx. Blood glucose is mildly variable, but control improving. Overnight oximetry obtained demonstrates intermittent hypoxia with lowest saturation 82%. 10/16/17: Patient reports she is 300% better; able to walk 300 feet with therapy today during which time oxygen saturation was stable. Does not require oxygen to ambulate and patient is not interested in oxygen for nighttime use at home nor does she have qualifying diagnosis. Remains frustrated with diagnosis of diabetes; has met with certified breastfeeding educator and dietitian. Instructed on self glucose monitoring and monitor provided. A1C 7.7 last month at [facility]. RT was instructed in use of metered-dose inhaler for home use. Stable for discharge at this time. Asked to follow-up with Dr. Jimenez as previously instructed and to schedule follow-up with Dr. Carolina for diabetes in the near future. Time spent with patient: discharge greater than 30 minutes Resuscitation Status: Full Code Discharge Plan - Discharge Disposition Discharge Date: 10/16/17 Disposition: Discharged Home, Self-Care *Condition: Improved Reason For Visit (Visit label in EMR): Hypoxia, Parainfluenza Virus 3 - Discharge Medications *Discharge Medications: New Albuterol HFA Inhaler [Ventolin Hfa 90 mcg/actuation] 2 puff ORAL INH Q4HR PRN #1 inhaler PRN Reason: Shortness Of Air/Wheezing Guaifenesin LA [Mucinex LA] 1,200 mg PO BID #40 tab Hydrocodone/Chlorphen Oral Liq [Tussionex] 5 ml PO Q12HR PRN #4 oz PRN Reason: Cough Metformin [Glucophage] 500 mg PO WB #30 tab Continue Zolpidem Tartrate [Ambien] 10 mg PO HS #0 Venlafaxine [Effexor] 37.5 mg PO BID Venetoclax [Venclexta] 200 mg PO DAILY Furosemide [Lasix 40 mg Tab] 40 mg PO BID Cyclobenzaprine [Flexeril] 10 mg PO TID PRN PRN Reason: Prn Orders Ondansetron Tab [Zofran Po] 8 mg PO TID PRN PRN Reason: Nausea &/Or Vomiting PredniSONE [Deltasone 20 mg] 40 mg PO DAILY Allopurinol [Zyloprim] 300 mg PO DAILY Omeprazole Magnesium [Prilosec Otc] 20 mg PO DAILY PRN #0 tab PRN Reason: Prn Orders Oxycodone *IR* [Roxicodone *Ir*] 60 mg PO Q4H PRN PRN Reason: Pain - Discharge Packet/Instructions *Diet: diabetic *Activity: As tolerate *Pain Management/Treatment: tylenol as needed or OxyIR as previously prescribed- -see medication list *Wound Care: Not applicable Additional Instructions: Continue guaifenesin LA (or Mucinex LA) twice daily as needed for cough and secretions for the next 1-2 weeks. The cough syrup you have been using at the hospital can be continued twice daily as needed as well ( Tussionex or hydrocodone/chlorphenir). Use albuterol (brand names Ventolin or Pro-air) inhaler with a spacer every 4 hours as needed for shortness of breath, tightness in her chest, wheezing. Take 1 puff, wait 30-60 seconds and then take a second puff. Take metformin daily with breakfast for diabetes. Monitor your blood sugar daily-in the morning and in the evening. Take record of your blood sugar readings to your office appointment. *Expected Signs/Symptoms: Shortness of breath with activities, continued cough at times-all of this should improve over the next 1-2 weeks. *Notify Physician if: Cough or difficulty breathing worsens significantly; blood sugars are running above 300 on a regular basis or if your blood sugar is under 80 regularly. *During Business Hours Contact: Dr. Jimenez or Dr. Carolina's offices *After Business Hours Contact: Dr. Jimenez's exchange or call [facility] at [phone] and ask that the on-call physician be paged for Dr. Carolina *Pending Lab/Results: No Pending Lab - Referrals/Follow Up *Referrals/Follow Up: Titi Jimenez MD [Primary Care Provider] - (As previously scheduled) Darryl Carolina DO [Physician] - (1-2 weeks if possible-hospital follow-up/diabetes CALL AND SCHEDULE APPOINTMENT TO SEE DR. CAROLINA FOR HOSPITAL FOLLOW UP/ DIABETES OFFICE NUMBER [phone]) - Patient Handouts Patient Handouts: Hypoxia (GEN) - Dismissal Complete Discharge Instructions are:: Complete Physician Narrative - Narrative Attestation Narrative: Date: 10/16/17 Time: 2008
== END 2017-10-16 15:50 | disposition home or self-care (01) | DRG 189 ==
LOC: EDUNIT# 11:54 → MED 11:54 → EDBD 11:54 → ED 11:54 → MED 16:30
PROVIDERS: ADMIT Internal Medicine; ATTEND Internal Medicine